=== PATIENT | male | born 1990 | race Caucasian/White ===

== ENCOUNTER 2023-05-09 10:29 | Outpatient (OUT) | payer BC, SELFPAY ==
[2023-05-10 05:08] LABS: Cytomegalovirus (CMV) Ab, IgG >10.00 U/mL (0.00-0.59)
[2023-05-10 06:08] LABS: HBsAg Screen Negative (Negative); Hep B Core Ab, IgM Negative (Negative); Hep B Core Ab, Tot Positive (Negative)
== END 2023-05-09 10:30 | disposition home or self-care (01) ==
PROVIDERS: PCP Nurse Practitioner Family; Visit Provider Nurse Practitioner Family
DX: R76.8 Other specified abnormal immunological findings in serum (principal)
CPT/HCPCS: 36415; 86644; 86704; 86705; 87340

== ENCOUNTER 2023-05-16 11:35 | Outpatient (OUT) | payer BC, SELFPAY ==
[2023-05-17 06:09] LABS: Cytomegalovirus (CMV) Ab, IgM <30.0 AU/mL (0.0-29.9)
== END 2023-05-16 11:36 | disposition home or self-care (01) ==
LOC: LAB 11:36
PROVIDERS: PCP Nurse Practitioner Family
DX: Z11.3 Encounter for screening for infections with a predominantly sexual mode of transmission (principal)
CPT/HCPCS: 36415; 86645

== ENCOUNTER 2023-05-27 06:30 | Outpatient (OUT) | payer BC, SELFPAY | END 2023-05-27 06:31 | disposition home or self-care (01) | LOC: LAB 06:31 | PROVIDERS: PCP Nurse Practitioner Family; Visit Provider Nurse Practitioner Family | DX: R76.8 Other specified abnormal immunological findings in serum (principal) | CPT/HCPCS: 36415; 87517 ==

== ENCOUNTER 2024-08-18 04:58 | Emergency (ER) | payer BC, SELFPAY ==
--- NOTE | 2024-08-18 05:18 | ECG_ITS ---
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
--- NOTE | 2024-08-18 05:23 | ED_ITS ---
HPI HPI - General Adult General Chief complaint: Psychiatric Symptoms Stated complaint: PSYCHOLOGICAL SYMPTOMS Time Seen by Provider: 08/18/24 05:00 History of Present Illness HPI narrative: Patient is a 34-year-old male who is presenting to the ER with chief complaint of suicidal ideation. Patient's called the police, stating that patient had made a comments that he was going to kill himself. There are guns in the garage. Patient was in the garage. [employer] came to the house, patient lives in [place]. Patient had initially ran into the gallagher, then patient came out of the gallagher. Is reported by EMS staff that patient was in the garage, he init lamonty would not come out of the garage for the police but then eventually the police were able to coax from garage to come out and come to the hospital for evaluation. Patient does admitting to having several tall drinks of bourbon this evening. Patient states that he caught his cheating with another man at her work tonight. Patient has 4 children. Patient has no underlying history of anxiety, stress, depression. Patient has no history of suicide or suicidal ideation. No family history of suicide in the family. Patient now is currently stating he does not want to hurt or kill himself, he left his 4 children. Patient has no medical complaints at this time. Patient states he does not have any guns in the garage, the arms that are in the garage are his 's. Patient is being cooperative and pleasant. Patient does not want to be here, but understands that we will go through the process of evaluation. 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 Patient is tearful and sad about finding his cheating on him with another man. Patient did not act out trying to hurt himself tonight. Patient denies cutting himself. Patient denies taking any medication overdose, patient is now currently stating if he had a gun he would not shoot himself. Police have not come with the patient to the ER. Police did not pink slipped him for unknown reason. It was stated that [employer] were at the house in [place] at his house. We have not seen the police. I have no please report. Report was given by EMS staff. Patient walked into the ER with EMS staff. All systems are negative except as noted/marked. All systems reviewed and otherwise negative. Nurses note and vital signs reviewed and patient is not hypoxic. General: The patient appears sad and in no apparent distress. Patient is resting comfortably on cart. Patient is not toxic, lethargic, or listless. Briefly tearful when speaking about his situation with his and children. Skin: Warm, dry, no pallor noted. There is no rash noted. No petechiae, purpura. No signs of cutting, riddle, rashes, self-harm. Head: Normocephalic, atraumatic Eye: Normal conjunctiva, no drainage, EOMI. PERRL Ears, Nose, Mouth, and Throat: oral mucosa is moist. Nares patent. Mouth without vesicles. Cardiovascular: Regular Rate and Rhythm, no murmur, gallop, rub Respiratory: Patient is in no distress, no accessory muscle use, lungs are clear to auscultation, no wheezing, rales or rhonchi Back: non-tender, no CVA tenderness bilaterally to percussion. No CT LS midline pain GI: no tenderness to palpation, no masses appreciated. No rebound, guarding, or rigidity noted. No distention Musculoskeletal: Patient has full range of motion of all of the extremities, no motor, sensory, or focal neurological deficits Neurological: A&O x4, normal speech, no slurred speech. GCS 15. Psychiatric: Cooperative, patient smells of alcohol, patient is now stating he is not suicidal, homicidal. He is not hallucinating. Not delusional. Related Data Home Medications ?Medication ?Instructions ?Recorded ?Confirmed No Known Home Medications 08/18/2411/04 Allergies Allergy/AdvReac Type Severity Reaction Status Date / Time No Known Drug Allergies Allergy Verified 08/18/24 05:40 Opioid HPI Opioid Management Most Recent Opioid Data: Ur Phencyclidine Scrn, (NEGATIVE) Negative Today, 05:19 PFSH PFSH Social History Little interest or pleasure in doing things: not at all Feeling down, depressed, or hopeless: not at all Exam Constitutional Vital Signs, click to edit/add: Last Vital Signs Temp 98.5 F 08/18/24 05:44 Pulse 99 H 08/18/24 05:44 Resp 18 08/18/24 05:44 BP 113/64 08/18/24 05:44 Pulse Ox 100 08/18/24 05:44 O2 Del Method Room Air 08/18/24 05:44 Course Vital Signs Vital signs: Vital Signs Temperature 98.5 F 08/18/24 05:44 Pulse Rate 99 H 08/18/24 05:44 Respiratory Rate 18 08/18/24 05:44 Blood Pressure 113/64 08/18/24 05:44 Pulse Oximetry 100 08/18/24 05:44 Oxygen Delivery Method Room Air 08/18/24 05:44 Temperature 98.5 F 08/18/24 05:44 Pulse Rate 99 H 08/18/24 05:44 Respiratory Rate 18 08/18/24 05:44 Blood Pressure 113/64 08/18/24 05:44 Pulse Oximetry 100 08/18/24 05:44 Oxygen Delivery Method Room Air 08/18/24 05:44 Medical Decision Making MDM Narrative Medical decision making narrative: Patient seen and examined: Patient will have psychiatric evaluation, patient has been pink slipped secondary to EMS report there was given in police reports to EMS staff. The police or [employer] have never come to the ER. [employer] did not pink slipped patient for unknown reason. When patient arrived, he was not suicidal homicidal. Patient admits to drinking alcohol. Patient did not admit to saying any active self-harm secondary to alcohol intoxication. Patient's is not here. Patient will need medically cleared and go through [facility] evaluation. Differential diagnosis includes but is not limited to: Diagnostics and management: Patient will have laboratory studies Relevant laboratory interpretation: Urine tox screen negative. Reevaluation: 0630 patient's alcohol level is 132. Patient BUN/creatinine are 21/1.5. Urine tox negative. Shared decision making: I discussed with the patient the necessary laboratory findings and radiological findings. Social barriers to healthcare: There are no food insecurities, there is no issue with transportation, there are no insurance barriers. Disposition: I discussed with the patient [facility] is not available to evaluate patient until they start working again after 8 AM. Patient did not wanting to eat or drink when initially offered. Patient has been pink slipped. 0630 patient is medically clear. Patient will need to go through [facility] evaluation. Based on [facility] evaluation, patient may be discharged from the ER or admitted to the hospital depending on the interaction and interview between patient, and [facility]. [facility] will need to speak to the or get collateral information on what happened this morning to ass ess the real threat of patient making comments or threats of killing himself. Patient adamantly denies the thought of wanting to hurt or kill himself secondary to his 4 children at home. Patient has told myself and Manasa CORDON several times he does not want to kill himself, does not want to . The band sawyer/police has never been in the ER. Patient be transition to Dr. Wiggins at 0700 evaluation of [facility], and final disposition. Critical care time 32 minutes exclusive from separate billable procedures that were performed. The following was considered in the determination of critical care but not limited to the level of medical decision making, intensive cardiac and/or respiratory monitoring, frequent vital sign monitoring, evaluation of laboratory studies, evaluation of radiographic studies, oxygen monitoring, and constant monitoring and speaking to family at bedside Lab Data Labs: Lab Results 08/18/24 08/18/24 Range/Units 05:19 05:28 WBC 5.5 (4.0-11.0) 10^3/uL RBC 4.47 L (4.70-6.10) 10^6/uL Hgb 14.6 (14.0-18.0) g/dL Hct 41.7 L (42.0-54.0) % MCV 93.3 (80.0-94.0) fL MCH 32.7 (25.9-34.0) pg MCHC 35.0 (29.9-35.2) g/dL RDW 12.0 (11.0-15.0) % Plt Count 217 (150-450) 10^3/uL MPV 9.3 L (9.5-13.5) fL Neut % (Auto) 50.3 (43.0-75.0) % Lymph % (Auto) 36.1 (20.5-60.0) % [place] % (Auto) 12.3 H (1.7-12.0) % Eos % (Auto) 0.4 L (0.9-7.0) % Baso % (Auto) 0.7 (0.2-2.0) % Neut # (Auto) 2.7 (1.4-6.5) 10^3/uL Lymph # (Auto) 2.0 (1.2-3.8) 10^3/uL [place] # (Auto) 0.7 (0.3-0.8) 10^3/uL Eos # (Auto) 0.0 (0.0-0.7) 10^3/uL Baso # (Auto) 0.0 (0.0-0.1) 10^3/uL Abs Immat Gran (auto) 0.01 (0.00-0.03) 10^3/uL Imm/Tot Granulo (auto) 0.2 (0.0-0.5) % Sodium 138 (136-145) mmol/L Potassium 3.7 (3.5-5.1) mmol/L Chloride 100 (98-107) mmol/L Carbon Dioxide 28.8 (21.0-32.0) mmol/L Anion Gap 12.9 BUN 21.0 H (7.0-18.0) mg/dL Creatinine 1.54 H (0.70-1.30) mg/dL Est GFR ( Amer) >60 (>=60 mL/min/1.73m^2) Est GFR (Non-Af Amer) 53 L (>=60 mL/min/1.73m^2) BUN/Creatinine Ratio 13.6 Glucose 104 (74-106) mg/dL Calcium 9.1 (8.5-10.1) mg/dL Total Bilirubin 0.6 (0.2-1.0) mg/dL AST 30 (15-37) U/L ALT 41 (16-63) U/L Alkaline Phosphatase 45 L (46-116) U/L Total Protein 7.7 (6.4-8.2) g/dL Albumin 4.3 (3.4-5.0) g/dL Globulin 3.4 g/dL Albumin/Globulin Ratio 1.3 Urine Color Yellow (YELLOW) Urine Clarity Clear (CLEAR) Urine pH 6.0 (5.0-9.0) Ur Specific [place] 1.025 (1.005-1.025) Urine Protein Trace (NEG/TRACE) mg/dL Urine Glucose (UA) Negative (NEGATIVE) mg/dL Urine Ketones Negative (NEGATIVE) mg/dL Urine Occult Blood Negative (NEGATIVE) Urine Nitrite Negative (NEGATIVE) Urine Bilirubin Negative (NEGATIVE) Urine Urobilinogen 0.2 (0.2-1.0) EU/dL Ur Leukocyte Esterase Negative (NEGATIVE) Urine RBC None seen (0-2) #/HPF Urine WBC 0-2 A (NONE SEEN) #/HPF Ur Squamous Epith Cells Rare (NONE/RARE) #/LPF Urine Crystals None seen (None Seen) #/HPF Urine Bacteria None seen (NONE SEEN) #/HPF Urine Casts None seen (NONE SEEN) #/LPF Urine Mucus Small A (NONE SEEN) Ur Culture Indicated? No Salicylates <2.8 (<=19.9) mg/dL Urine Opiates Screen Negative (NEGATIVE) Ur Buprenorphine Scrn Negative (NEGATIVE) Ur Oxycodone Screen Negative (NEGATIVE) Urine Methadone Screen Negative (NEGATIVE) Acetaminophen <2.0 L (10.0-30.0) ug/mL Ur Barbiturates Screen Negative (NEGATIVE) U Tricyclic Antidepress Negative (NEGATIVE) Ur Phencyclidine Scrn Negative (NEGATIVE) Ur Amphetamines Screen Negative (NEGATIVE) U Methamphetamines Scrn Negative (NEGATIVE) U Benzodiazepines Scrn Negative (NEGATIVE) Urine Cocaine Screen Negative (NEGATIVE) U Cannabinoids Screen Negative (NEGATIVE) Ethanol Quant 132 mg/dL ECG Data Attestation: I personally reviewed and interpreted this ECG as follows: (EKG interpretation. Normal sinus rhythm at 75 beats minute. Normal axis deviation. Diffuse Q waves. QTc of 414.) Discharge Plan Discharge Chief Complaint: Psychiatric Symptoms Clinical Impression: Alcohol intoxication, Situational crisis, Mild renal insufficiency Condition: Fair Prescriptions / Home Meds: No Action No Known Home Medications Print Language: Macedonian Referrals: PAM LEYVA [Primary Care Provider, Unknown] - 1 week
[2024-08-18 05:40] VITALS: PULSE 88
[2024-08-18 05:44] VITALS: BP 113/64; PULSE 99; TEMP 36.9; O2SAT 100; BMI 25.8
[2024-08-18 05:52] LABS: Hematocrit 41.7 % (42.0-54.0); Hemoglobin 14.6 g/dL (14.0-18.0); Immature Granulocytes Abs Auto 0.01 10^3/uL (0.00-0.03); Immature Granulocytes Pct Auto 0.2 % (0.0-0.5); Lymphocytes Absolute Auto 2.0 10^3/uL (1.2-3.8); Mean Corpuscular HGB Conc 35.0 g/dL (29.9-35.2); Mean Corpuscular Hemoglobin 32.7 pg (25.9-34.0); Mean Corpuscular Volume 93.3 fL (80.0-94.0); Platelet Count 217 10^3/uL (150-450); Red Blood Count 4.47 10^6/uL (4.70-6.10); White Blood Count 5.5 10^3/uL (4.0-11.0)
[2024-08-18 05:53] LABS: Glucose Urine UA NEGATIVE (NEGATIVE)
[2024-08-18 06:03] LABS: Cannabinoid Screen Urine NEGATIVE (NEGATIVE); Methamphetamines Screen Urine NEGATIVE (NEGATIVE); Tricyclic Antidepressant Urine NEGATIVE (NEGATIVE)
[2024-08-18 06:06] LABS: Cast Seen? NONE SEEN #/LPF (NONE SEEN); Crystals Seen? None Seen #/HPF (None Seen); Urine Culture Indicated NO
[2024-08-18 06:17] LABS: Anion Gap 12.9; Blood Urea Nitrogen 21.0 mg/dL (7.0-18.0); Carbon Dioxide 28.8 mmol/L (21.0-32.0); Chloride 100 mmol/L (98-107); Estimated GFR (African America >60 (>=60 mL/min/1.73m^2); Estimated GFR (Non-African Ame 53 (>=60 mL/min/1.73m^2); Glucose 104 mg/dL (74-106); Potassium 3.7 mmol/L (3.5-5.1); Sodium 138 mmol/L (136-145)
[2024-08-18 06:18] LABS: Acetaminophen <2.0 ug/mL (10.0-30.0); Alanine Aminotransferase 41 U/L (16-63); Albumin Globulin Ratio 1.3; Albumin Level 4.3 g/dL (3.4-5.0); Alkaline Phosphatase 45 U/L (46-116); Aspartate Amino Transferase 30 U/L (15-37); Calcium 9.1 mg/dL (8.5-10.1); Globulin 3.4 g/dL; Salicylate <2.8 mg/dL (<=19.9); Total Protein 7.7 g/dL (6.4-8.2)
--- NOTE | 2024-08-18 10:40 | ED.GENADUL1 ---
HPI HPI - General Adult General Chief complaint: Psychiatric Symptoms Stated complaint: PSYCHOLOGICAL SYMPTOMS Time Seen by Provider: 08/18/24 05:00 Source: patient Mode of arrival: ambulance Limitations: no limitations History of Present Illness HPI narrative: 34-year-old male was initially seen by Dr. Gill and signed out to me after discussing the case with him thoroughly. Please see his full history and physical exam. Related Data Home Medications ?Medication ?Instructions ?Recorded ?Confirmed No Known Home Medications 08/18/24 08/18/24 Allergies Allergy/AdvReac Type Severity Reaction Status Date / Time No Known Drug Allergies Allergy Verified 08/18/24 05:40 Opioid HPI Opioid Management Most Recent Opioid Data: Ur Phencyclidine Scrn, (NEGATIVE) Negative Today, 05:19 PFSH PFSH Social History Little interest or pleasure in doing things: not at all Feeling down, depressed, or hopeless: not at all Exam Constitutional Vital Signs, click to edit/add: Last Vital Signs Temp 98.5 F 08/18/24 05:44 Pulse 99 H 08/18/24 05:44 Resp 18 08/18/24 05:44 BP 113/64 08/18/24 05:44 Pulse Ox 100 08/18/24 05:44 O2 Del Method Room Air 08/18/24 05:44 Course Vital Signs Vital signs: Vital Signs Temperature 98.5 F 08/18/24 05:44 Pulse Rate 99 H 08/18/24 05:44 Respiratory Rate 18 08/18/24 05:44 Blood Pressure 113/64 08/18/24 05:44 Pulse Oximetry 100 08/18/24 05:44 Oxygen Delivery Method Room Air 08/18/24 05:44 Temperature 98.5 F 08/18/24 05:44 Pulse Rate 99 H 08/18/24 05:44 Respiratory Rate 18 08/18/24 05:44 Blood Pressure 113/64 08/18/24 05:44 Pulse Oximetry 100 08/18/24 05:44 Oxygen Delivery Method Room Air 08/18/24 05:44 Medical Decision Making MDM Narrative Medical decision making narrative: The patient has been interviewed by mental health services and has been cleared to go home. Lab Data Lab results reviewed: Yes I reviewed the patient's lab results Labs: Lab Results 08/18/24 08/18/24 Range/Units 05:19 05:28 WBC 5.5 (4.0-11.0) 10^3/uL RBC 4.47 L (4.70-6.10) 10^6/uL Hgb 14.6 (14.0-18.0) g/dL Hct 41.7 L (42.0-54.0) % MCV 93.3 (80.0-94.0) fL MCH 32.7 (25.9-34.0) pg MCHC 35.0 (29.9-35.2) g/dL RDW 12.0 (11.0-15.0) % Plt Count 217 (150-450) 10^3/uL MPV 9.3 L (9.5-13.5) fL Neut % (Auto) 50.3 (43.0-75.0) % Lymph % (Auto) 36.1 (20.5-60.0) % [place] % (Auto) 12.3 H (1.7-12.0) % Eos % (Auto) 0.4 L (0.9-7.0) % Baso % (Auto) 0.7 (0.2-2.0) % Neut # (Auto) 2.7 (1.4-6.5) 10^3/uL Lymph # (Auto) 2.0 (1.2-3.8) 10^3/uL [place] # (Auto) 0.7 (0.3-0.8) 10^3/uL Eos # (Auto) 0.0 (0.0-0.7) 10^3/uL Baso # (Auto) 0.0 (0.0-0.1) 10^3/uL Abs Immat Gran (auto) 0.01 (0.00-0.03) 10^3/uL Imm/Tot Granulo (auto) 0.2 (0.0-0.5) % Sodium 138 (136-145) mmol/L Potassium 3.7 (3.5-5.1) mmol/L Chloride 100 (98-107) mmol/L Carbon Dioxide 28.8 (21.0-32.0) mmol/L Anion Gap 12.9 BUN 21.0 H (7.0-18.0) mg/dL Creatinine 1.54 H (0.70-1.30) mg/dL Est GFR ( Amer) >60 (>=60 mL/min/1.73m^2) Est GFR (Non-Af Amer) 53 L (>=60 mL/min/1.73m^2) BUN/Creatinine Ratio 13.6 Glucose 104 (74-106) mg/dL Calcium 9.1 (8.5-10.1) mg/dL Total Bilirubin 0.6 (0.2-1.0) mg/dL AST 30 (15-37) U/L ALT 41 (16-63) U/L Alkaline Phosphatase 45 L (46-116) U/L Total Protein 7.7 (6.4-8.2) g/dL Albumin 4.3 (3.4-5.0) g/dL Globulin 3.4 g/dL Albumin/Globulin Ratio 1.3 Urine Color Yellow (YELLOW) Urine Clarity Clear (CLEAR) Urine pH 6.0 (5.0-9.0) Ur Specific [place] 1.025 (1.005-1.025) Urine Protein Trace (NEG/TRACE) mg/dL Urine Glucose (UA) Negative (NEGATIVE) mg/dL Urine Ketones Negative (NEGATIVE) mg/dL Urine Occult Blood Negative (NEGATIVE) Urine Nitrite Negative (NEGATIVE) Urine Bilirubin Negative (NEGATIVE) Urine Urobilinogen 0.2 (0.2-1.0) EU/dL Ur Leukocyte Esterase Negative (NEGATIVE) Urine RBC None seen (0-2) #/HPF Urine WBC 0-2 A (NONE SEEN) #/HPF Ur Squamous Epith Cells Rare (NONE/RARE) #/LPF Urine Crystals None seen (None Seen) #/HPF Urine Bacteria None seen (NONE SEEN) #/HPF Urine Casts None seen (NONE SEEN) #/LPF Urine Mucus Small A (NONE SEEN) Ur Culture Indicated? No Salicylates <2.8 (<=19.9) mg/dL Urine Opiates Screen Negative (NEGATIVE) Ur Buprenorphine Scrn Negative (NEGATIVE) Ur Oxycodone Screen Negative (NEGATIVE) Urine Methadone Screen Negative (NEGATIVE) Acetaminophen <2.0 L (10.0-30.0) ug/mL Ur Barbiturates Screen Negative (NEGATIVE) U Tricyclic Antidepress Negative (NEGATIVE) Ur Phencyclidine Scrn Negative (NEGATIVE) Ur Amphetamines Screen Negative (NEGATIVE) U Methamphetamines Scrn Negative (NEGATIVE) U Benzodiazepines Scrn Negative (NEGATIVE) Urine Cocaine Screen Negative (NEGATIVE) U Cannabinoids Screen Negative (NEGATIVE) Ethanol Quant 132 mg/dL Discharge Plan Discharge Chief Complaint: Psychiatric Symptoms Clinical Impression: Alcohol intoxication, Situational crisis, Mild renal insufficiency Patient Disposition: Home, Self-Care Time of Disposition Decision: 09:42 Condition: Fair Mode of Transportation: Private Vehicle Prescriptions / Home Meds: No Action No Known Home Medications Print Language: Albanian Instructions: Stress (ED), Alcohol Intoxication (ED) Referrals: PAM LEYVA [Primary Care Provider, Unknown] - 1 week
[2024-08-18 11:15] VITALS: BP 112/80; PULSE 76; O2SAT 100
== END 2024-08-18 11:17 | disposition home or self-care (01) ==
PROVIDERS: Emergency Medicine; Emergency Provider Emergency Medicine; PCP Nurse Practitioner Family
DX: F43.0 Acute stress reaction (principal); N28.9 Disorder of kidney and ureter, unspecified; F10.129 Alcohol abuse with intoxication, unspecified; Y90.6 Blood alcohol level of 120-199 mg/100 ml
CPT/HCPCS: 36415; 80053; 80179; 80307; 80320; 80329; 81001; 85025; 93005; 99285